=== PATIENT | male | born 1940 | race Caucasian/White ===

== ENCOUNTER → 2025-04-09 13:05 | Outpatient (REF) | payer OTHER, SELFPAY ==
[2025-04-09 14:00] LABS: Hematocrit 34.5 % (39.0-52.0); Hemoglobin 11.9 g/dL (13.0-18.0); Mean Corp Hgb Conc. 34.5 g/dL (33.0-37.0); Mean Corpuscular Volume 92.2 fL (80.0-94.0); Nucleated Red Blood Cells % 0 % (-); Red Cell Dist. Width 13.3 % (11.5-14.5)
[2025-04-09 14:40] LABS: C-Reactive Protein < 5.00 mg/L (0.0-10.00)
[2025-04-09 15:34] LABS: Platelet Count 92 10^3/uL (130-400)
[2025-04-11 17:49] LABS: ANA, IgG Reflex to HEp-2 None Detected (None Detected)
== END ==
LOC: RAD 13:05
PROVIDERS: ATTENDING PHYSICIAN Student in an Organized Health Care Education/Training Program; FAMILY PHYSICIAN Internal Medicine
DX: D69.6 Thrombocytopenia, unspecified (principal); D72.19 Other eosinophilia; R70.0 Elevated erythrocyte sedimentation rate; R76.8 Other specified abnormal immunological findings in serum; D72.819 Decreased white blood cell count, unspecified
CPT/HCPCS: 36415; 73100; 73120; 82570; 82784; 83521; 84155; 84156; 84165; 85025; 85652; 86038; 86140; 86334